=== PATIENT | female | born 1955 | race Caucasian/White ===

== ENCOUNTER 2019-03-20 21:08 | Emergency (ER) | payer OTHER ==
[~2019-03-20] VITALS: Ht 160 cm; Wt 68.0 kg
[~2019-03-20 21:08] MED LIST: CITA20 PO; DIAZ5 PO; HYDACE5325 PO; MARIJUANA; MULVITMINE PO; MUPI2TC TOP; Norco 5-325 Ta1 EACH PO; OXYACE5T PO
== END 2019-03-21 02:44 | disposition left against medical advice (07) ==
LOC: ER 21:08
DX: Z53.21 Procedure and treatment not carried out due to patient leaving prior to being seen by health care provider (principal)
CPT/HCPCS: 93005; 93010

== ENCOUNTER 2023-07-19 12:09 | Day surgery (SDC) | payer MEDICARE, OTHER ==
[~2023-07-19] VITALS: Ht 162.6 cm; Wt 64.3 kg
[~2023-07-19 12:09] MED LIST changes: +AMIT25 PO; +DIAZ10 PO; +EUTHYROX50 MCG PO; +HYDPAM25 PO
[2023-07-19] MEDS ORDERED: ESCI20 PO (12:31)
[2023-07-19] MEDS ORDERED: BUPROPION XL150 M1 PO (12:32)
[2023-07-19 13:50] VITALS: BP 137/74
== END 2023-07-19 14:13 | disposition home or self-care (01) ==
LOC: ORSCSDS 12:09
PROVIDERS: Ophthalmology
PROC: 08RJ3JZ Replacement of Right Lens with Synthetic Substitute, Percutaneous Approach (ICD-10-PCS; principal; 2023-07-19 13:30)
DX: H25.13 Age-related nuclear cataract, bilateral (principal); Z79.899 Other long term (current) drug therapy
CPT/HCPCS: J2001; J2250; J3010; J3301; J7040; V2632

== ENCOUNTER 2023-07-26 14:52 | Day surgery (SDC) | payer MEDICARE, OTHER ==
[~2023-07-26] VITALS: Ht 160 cm; Wt 65.0 kg
[~2023-07-26 14:52] MED LIST changes: +BUPROPION XL150 M1 PO; +ESCI20 PO
[2023-07-26 16:55] VITALS: BP 125/64
== END 2023-07-26 16:53 | disposition home or self-care (01) ==
LOC: ORSCSDS 14:52
PROVIDERS: Ophthalmology
PROC: 08RK3JZ Replacement of Left Lens with Synthetic Substitute, Percutaneous Approach (ICD-10-PCS; principal; 2023-07-26 16:00)
DX: H25.12 Age-related nuclear cataract, left eye (principal); Z96.1 Presence of intraocular lens; E03.9 Hypothyroidism, unspecified; F41.9 Anxiety disorder, unspecified; Z79.899 Other long term (current) drug therapy
CPT/HCPCS: J2250; J2405; J3010; J3301; J7040; V2632

== ENCOUNTER → 2024-09-12 | Outpatient (CLI) | payer MEDICARE, OTHER ==
[2024-09-12 19:31] LABS: U Amphetamine Screen Not Detected; U Barbituate Screen Not Detected; U Benzodiazapine Screen DETECTED; U Buprenorphine Screen Not Detected; U Cannabinoids Screen DETECTED; U Cocaine Screen Not Detected; U Methadone Screen Not Detected; U Methamphetamine Screen Not Detected; U Opiates Screen Not Detected; U Oxycodone Screen Not Detected; U Phencyclidine Screen Not Detected
[2024-09-17 19:43] LABS: 11-NOR-9-CARBOXY-THC,URN,QUANT >500 ng/mL
== END ==
LOC: LAB 15:46 → LAB SHORT 15:46
PROVIDERS: Nurse Practitioner Family
DX: Z51.81 Encounter for therapeutic drug level monitoring (principal); Z79.899 Other long term (current) drug therapy